=== PATIENT | female | born 1995 | race Caucasian/White ===

== ENCOUNTER 2020-01-01 00:08 | Inpatient (IN) | payer MEDICAID, OTHER ==
[~2020-01-01] VITALS: Ht 165.1 cm; Wt 88.5 kg
[2020-01-01] MEDS ORDERED: PREN-176 PO (00:45)
[2020-01-01] MEDS ORDERED: NALOXONE HCL 0.4 MG/ML 1ML VIAL IM PRN (01:15)
[2020-01-01] MEDS ORDERED: LACTATED RINGERS 1,000 ML IV SCH (01:15)
[2020-01-01] MEDS ORDERED: LIDOCAINE HCL 1% 20ML VIAL (Pyxis) INJ INFIL SCH (01:15)
[2020-01-01] MEDS ORDERED: DEXT 5%/LR + PITOCIN 20UNITS/L 1,000 ML IV SCH (01:15)
[2020-01-01] MEDS ORDERED: METHYLERGONOVINE MALEATE 0.2 MG/ML IM PRN (01:15)
[2020-01-01] MEDS ORDERED: BUTORPHANOL TARTRATE 2 MG/ML VIAL IV PRN (01:15)
[2020-01-01 02:23] LABS: BASOPHILS % 0.6 % (0.0-2.0); EOSINOPHILS % 0.7 % (0.0-5.0); HEMATOCRIT. 30.2 % (36.0-48.0); HEMOGLOBIN. 9.8 g/dL (12.0-16.0); LYMPHOCYTES % 12.7 % (20.0-50.0); MEAN CORPUSCULAR HEMOGLOBIN 25.3 pg (28.0-32.0); MEAN CORPUSCULAR VOLUME 77.8 fL (81.0-99.0); MEAN PLATELET VOLUME 10.4 fl (7.4-10.4); MONOCYTES % 8.2 % (2.0-8.0); NEUTROPHILS % 77.8 % (40.0-76.0); PLATELET 235 x1000/uL (130-400); RED BLOOD CELL COUNT 3.88 mill/uL (4.2-5.4); RED CELL DISTRIBUTION WIDTH 17.3 % (11.6-14.6)
[2020-01-01 02:30] LABS: CLARITY URINE CLOUDY (CLEAR); COLOR URINE YELLOW (YELLOW); KETONES URINE TRACE (NEGATIVE); LEUKOCYTE ESTERASE URINE 3+ (NEGATIVE); NITRITE URINE NEGATIVE (NEGATIVE); OCCULT BLOOD URINE 2+ (NEGATIVE); PROTEIN URINE 1+ (NEGATIVE); SPECIFIC GRAVITY URINE 1.024 (1.005-1.030)
[2020-01-01 02:35] LABS: *AMPHETAMINES SCREEN URINE NEGATIVE (NEGATIVE)
[2020-01-01 02:35] LABS: PARTIAL THROMBOPLASTIN TIME 29.6 sec (23.4-31.0); PROTHROMBIN TIME 10.1 sec (9.6-11.0)
[2020-01-01 02:36] LABS: *BARBITURATES SCREEN URINE NEGATIVE (NEGATIVE); *BENZODIAZEPINES SCREEN URINE NEGATIVE (NEGATIVE); *COCAINE SCREEN URINE NEGATIVE (NEGATIVE); METHADONE URINE SCREEN NEGATIVE (NEGATIVE); OPIATES URINE SCREEN NEGATIVE (NEGATIVE); PHENCYCLIDINE URINE SCREEN NEGATIVE (NEGATIVE)
[2020-01-01] MEDS ORDERED: LABETALOL HCL 5MG/ML VIAL 20ML IV PRN ×6 (03:00→21:45)
[2020-01-01 03:03] LABS: D-DIMER 2.94 mg/L FEU (<0.50); HEPATITIS B SURFACE ANTIGEN NEGATIVE
[2020-01-01 03:10] LABS: CHLORIDE 108 mEq/L (98-107)
[2020-01-01 06:37] LABS: CANNABINOID URINE SCREEN NEGATIVE (NEGATIVE)
[2020-01-01] MEDS: LACTATED RINGERS 1,000 ML IV SCH ×2 (06:48→19:44)
[2020-01-01] MEDS ORDERED: ROPIVACAINE HCL/PF EPIDURAL 200 ML EPI SCH (09:15)
[2020-01-01] MEDS ORDERED: LIDOCAINE HCL 2%/EPINEPHRINE 1:100,000 20 ML VIAL INFIL ONE (17:38)
[2020-01-02] MEDS ORDERED: ONDANSETRON HCL 4MG/2ML INJ IV NR (00:15)
[2020-01-02] MEDS ORDERED: ONDANSETRON HCL 4MG/2ML INJ ONE (01:37)
[2020-01-02] MEDS ORDERED: SODIUM CHLORIDE 0.9% 10ML VIAL ONE (01:37)
[2020-01-02] MEDS ORDERED: METOCLOPRAMIDE HCL 10MG/2ML VIAL ONE (01:37)
[2020-01-02] MEDS ORDERED: OXYTOCIN 10 UNITS/ML 1ML ONE (01:37)
[2020-01-02] MEDS ORDERED: CEFAZOLIN SODIUM 1000MG/VIAL ONE (01:37)
[2020-01-02] MEDS ORDERED: EPHEDRINE SULFATE 50MG/ML VIAL ONE (01:38)
[2020-01-02] MEDS ORDERED: FENTANYL CITRATE/PF 50MCG/ML 2ML VIAL ONE (01:44)
[2020-01-02] MEDS ORDERED: MORPHINE SULFATE/PF 1MG/ML 10ML AMP ONE (01:44)
[2020-01-02] MEDS ORDERED: DEXT 5%/LR + PITOCIN 20UNITS/L 1,000 ML IV SCH (02:59)
[2020-01-02] MEDS ORDERED: BISACODYL 10MG SUPP PR PRN (03:00)
[2020-01-02] MEDS ORDERED: DIPHENHYDRAMINE 25MG CAPSULE PO PRN (03:00)
[2020-01-02] MEDS ORDERED: LANOLIN OINT 7GM TUBE TOP PRN (03:00)
[2020-01-02] MEDS ORDERED: ONDANSETRON HCL 4MG/2ML INJ IV PRN ×2 (03:00→03:15)
[2020-01-02] MEDS ORDERED: ACETAMINOPHEN WITH CODEINE 300/30MG TABLET PO PRN (03:00)
[2020-01-02] MEDS ORDERED: RHO(D) IMMUNE GLOBULIN 300 MCG/SYR IM PRN (03:00)
[2020-01-02] MEDS ORDERED: IBUPROFEN 400MG TABLET PO PRN (03:00)
[2020-01-02] MEDS ORDERED: HEMORRHOIDAL SUPP PR PRN (03:00)
[2020-01-02] MEDS ORDERED: IBUPROFEN 800MG TABLET PO PRN (03:00)
[2020-01-02] MEDS ORDERED: HYDROMORPHONE HCL/PF 2MG/ML CPJ IV PRN (03:15)
[2020-01-02] MEDS ORDERED: DIPHENHYDRAMINE 50MG/ML VIAL IV PRN (03:15)
[2020-01-02] MEDS ORDERED: METOCLOPRAMIDE HCL 10MG/2ML VIAL IV PRN (03:15)
[2020-01-02] MEDS ORDERED: KETOROLAC 30MG/ML VIAL IV PRN (03:15)
[2020-01-02] MEDS ORDERED: MEPERIDINE HCL/PF 25MG/ML CPJ IV PRN (03:15)
[2020-01-02 04:40] VITALS: BP 122/64
[2020-01-02 05:20] VITALS: BP 122/66
[2020-01-02 05:40] VITALS: BP 120/65
[2020-01-02 08:00] VITALS: BP 114/71
[2020-01-02] MEDS: SIMETHICONE 80MG TABLET CHEW PO SCH ×4 (08:00→21:10)
[2020-01-02] MEDS: PRENATAL VIT/FE FUMARATE/FA TABLET PO SCH (08:42)
[2020-01-02 08:49] LABS: HEMATOCRIT. 24.4 % (36.0-48.0); HEMOGLOBIN. 7.9 g/dL (12.0-16.0); MEAN CORPUSCULAR HEMOGLOBIN 25.3 pg (28.0-32.0); MEAN CORPUSCULAR VOLUME 78.4 fL (81.0-99.0); MEAN PLATELET VOLUME 9.9 fl (7.4-10.4); PLATELET 203 x1000/uL (130-400); RED BLOOD CELL COUNT 3.12 mill/uL (4.2-5.4)
[2020-01-02] MEDS ORDERED: GENTAMICIN 120MG PREMIX 100 ML IV SCH (11:00)
[2020-01-02] MEDS: AMPICILLIN 2,000 MG in SODIUM CHLORIDE 0.9% 100 ML IV SCH ×2 (11:59→18:05)
[2020-01-02 12:54] LABS: PLATELET ESTIMATE NORMAL
[2020-01-02 15:59] VITALS: BP 102/52
[2020-01-02] MEDS: GENTAMICIN 100MG PREMIX 50 ML IV SCH (18:04)
[2020-01-02] MEDS: LACTATED RINGERS 1,000 ML IV SCH (18:06)
[2020-01-02 19:30] VITALS: BP 110/47
[2020-01-02] MEDS: DOCUSATE SODIUM 100MG CAPSULE PO SCH (21:11)
[2020-01-03] MEDS: AMPICILLIN 2,000 MG in SODIUM CHLORIDE 0.9% 100 ML IV SCH ×4 (00:09→18:03)
[2020-01-03] MEDS: GENTAMICIN 100MG PREMIX 50 ML IV SCH ×3 (02:14→19:11)
[2020-01-03 04:00] VITALS: BP 125/79
[2020-01-03 06:27] LABS: BASOPHILS % 0.2 % (0.0-2.0); EOSINOPHILS % 0.6 % (0.0-5.0); HEMATOCRIT. 23.2 % (36.0-48.0); HEMOGLOBIN. 7.7 g/dL (12.0-16.0); LYMPHOCYTES % 11.5 % (20.0-50.0); MEAN CORPUSCULAR HEMOGLOBIN 25.6 pg (28.0-32.0); MEAN CORPUSCULAR VOLUME 77.7 fL (81.0-99.0); MEAN PLATELET VOLUME 9.5 fl (7.4-10.4); MONOCYTES % 7.9 % (2.0-8.0); NEUTROPHILS % 79.8 % (40.0-76.0); PLATELET 193 x1000/uL (130-400); RED BLOOD CELL COUNT 2.98 mill/uL (4.2-5.4)
[2020-01-03 07:32] VITALS: BP 121/79
[2020-01-03] MEDS: PRENATAL VIT/FE FUMARATE/FA TABLET PO SCH (08:09)
[2020-01-03] MEDS: SIMETHICONE 80MG TABLET CHEW PO SCH ×4 (08:09→21:02)
[2020-01-03] MEDS: FERROUS SULFATE 325MG TABLET PO SCH ×3 (08:09→17:33)
[2020-01-03 11:20] LABS: CHLORIDE 107 mEq/L (98-107)
[2020-01-03 16:06] VITALS: BP 122/64
[2020-01-03 20:00] VITALS: BP_SYST 131; BP_SYST 136; BP_DIAS 71; BP_DIAS 84
[2020-01-03] MEDS: DOCUSATE SODIUM 100MG CAPSULE PO SCH (21:01)
[2020-01-04] VITALS: BP 126/72
[2020-01-04] MEDS: AMPICILLIN 2,000 MG in SODIUM CHLORIDE 0.9% 100 ML IV SCH ×2 (00:14→06:19)
[2020-01-04] MEDS: GENTAMICIN 100MG PREMIX 50 ML IV SCH (03:00)
[2020-01-04 04:00] VITALS: BP 114/72
[2020-01-04 06:45] LABS: BASOPHILS % 0.3 % (0.0-2.0); EOSINOPHILS % 1.1 % (0.0-5.0); HEMOGLOBIN. 7.8 g/dL (12.0-16.0); LYMPHOCYTES % 12.4 % (20.0-50.0); MEAN CORPUSCULAR HEMOGLOBIN 25.3 pg (28.0-32.0); MEAN CORPUSCULAR VOLUME 78.2 fL (81.0-99.0); MEAN PLATELET VOLUME 9.6 fl (7.4-10.4); MONOCYTES % 7.2 % (2.0-8.0); PLATELET 241 x1000/uL (130-400); RED BLOOD CELL COUNT 3.07 mill/uL (4.2-5.4)
[2020-01-04 07:30] VITALS: BP 116/66
[2020-01-04] MEDS: SIMETHICONE 80MG TABLET CHEW PO SCH (08:02)
[2020-01-04] MEDS: PRENATAL VIT/FE FUMARATE/FA TABLET PO SCH (08:02)
[2020-01-04] MEDS: FERROUS SULFATE 325MG TABLET PO SCH (08:02)
== END 2020-01-04 10:30 | disposition home or self-care (01) | DRG 787 ==
LOC: OBSVTOIN 00:08 → 8 EST LDRP 00:08 → 8EST 01-02 04:40
PROVIDERS: ADMIT Obstetrics & Gynecology; ATTEND Obstetrics & Gynecology
PROC: 10D00Z1 Extraction of Products of Conception, Low, Open Approach (ICD-10-PCS; principal; 2020-01-02)
PROC: 3E033VJ Introduction of Other Hormone into Peripheral Vein, Percutaneous Approach (ICD-10-PCS; 2020-01-02)
PROC: 3E0234Z Introduction of Serum, Toxoid and Vaccine into Muscle, Percutaneous Approach (ICD-10-PCS; 2020-01-02)
DX: O76 Abnormality in fetal heart rate and rhythm complicating labor and delivery (principal); D62 Acute posthemorrhagic anemia; O62.2 Other uterine inertia; O77.0 Labor and delivery complicated by meconium in amniotic fluid; Z3A.40 40 weeks gestation of pregnancy; Z37.0 Single live birth; Z23 Encounter for immunization; O99.02 Anemia complicating childbirth
CPT/HCPCS: 36415; 80048; 80053; 80305; 80349; 81003; 84550; 85025; 85379; 85384; 86592; 86703; 86762; 86850; 86886; 86900; 87340; 88307; 90384; 99281; C1726; G0378; J0290; J0690; J1580; J1885; J2274; J2405; J2590; J2765; J2795; J3010; J3490; J7050; J7120